=== PATIENT | female | born 1945 | race Caucasian/White ===

== ENCOUNTER → 2018-02-28 | Outpatient (REF) | payer MEDICARE, BC ==
[~2018-02-28] MED LIST: CELEBREX200 MG PO; FLORASTOR250 M1 PO; LISINOPRIL10 MG PO; METFORMIN1000 MG PO; NEXIUM40 MG PO; NYSTATIN100000 M1 PO; PRAVASTATIN20 MG PO; PROVENTIL HFA INH; SPIRIVA HANDIHALER INH; SYNTHROID75 MCG PO; TRILIPIX135 MG PO
[2018-02-28 08:30] LABS: ANION GAP 13 (6-22 (CALC)); BUN 20 mg/dL (8-23); BUN/CREATININE RATIO 22 (12-20 (CALC)); CARBON DIOXIDE 25 mmol/l (22-30); CHLORIDE 104 mmol/l (95-108); CREATININE 0.9 mg/dL (0.5-1.0); GFR > 60 ML/MIN (>=60 (CALC)); GFR FOR AFR.AMER. > 60 ML/MIN (>=60 (CALC)); POTASSIUM 4.6 mmol/l (3.5-5.1); SODIUM 138 mmol/l (137-146)
== END | disposition home or self-care (01) ==
LOC: LAB 07:04
PROVIDERS: ATTEND Internal Medicine
DX: E03.9 Hypothyroidism, unspecified (principal); E11.9 Type 2 diabetes mellitus without complications; E87.5 Hyperkalemia; E66.01 Morbid (severe) obesity due to excess calories; I10 Essential (primary) hypertension; N18.9 Chronic kidney disease, unspecified

== ENCOUNTER 2021-01-05 13:01 | Inpatient (IN) | payer MEDICARE, BC ==
[~2021-01-05] VITALS: Ht 167.6 cm; Wt 78.0 kg
--- NOTE | 2021-01-05 13:02 | NUR ---
PT TO ROOM FOR TRIAGE VIA EMS STRETCHER.
[2021-01-05 13:42] LABS: HEMATOCRIT 42.7 % (37.0-47.0); HEMOGLOBIN 14.1 g/dl (12.0-16.0); IMMATURE GRANULOCYTES 0.4 % (0.0-5.0); MEAN CELL VOLUME 85.4 fL CALC (80.0-100.0); MEAN CORPUSCULAR HGB 28.2 pG CALC (26.0-32.0); NEUT# 3.87 thou/uL (2.00-7.15); RED CELL DISTRI WIDTH 13.2 % (11.5-15.5)
[2021-01-05 14:20] LABS: ALBUMIN 3.4 g/dL (3.2-5.0); ALKALINE PHOSPHATASE 63 u/l (38-126); ANION GAP 12 (6-22 (CALC)); BILIRUBIN, TOTAL 0.3 mg/dL (0.0-1.4); BUN 17 mg/dL (8-23); BUN/CREATININE RATIO 19 (12-20 (CALC)); CARBON DIOXIDE 27 mmol/l (22-30); CHLORIDE 93 mmol/l (95-108); CREATININE 0.9 mg/dL (0.5-1.0); GFR > 60 ML/MIN (>=60 (CALC)); GFR FOR AFR.AMER. > 60 ML/MIN (>=60 (CALC)); LIPASE 590 u/l (23-300); POTASSIUM 4.4 mmol/l (3.5-5.1); SGOT/AST 24 u/l (9-36); SODIUM 128 mmol/l (137-146); TOTAL PROTEIN 6.8 g/dL (6.3-8.2)
[2021-01-05] MEDS ORDERED: OMEPRAZOLE10 MG PO (14:39)
[2021-01-05] MEDS ORDERED: NORVASC5 M1 PO (14:40)
[2021-01-05] MEDS ORDERED: HYDROCHLOROT12.5 MG PO (14:41)
--- NOTE | 2021-01-05 14:43 | NUR ---
IV FLUIDS AND MEDS INFUSING WITHOUT DIFFICULTY. DAUGHTER AT BEDSIDE. STABLE ON MONITOR. CALL LIGHT WITHIN REACH.
--- NOTE | 2021-01-05 15:45 | NUR ---
IV MEDS COMPLETED. FLUIDS INFUSING WITHOUT DIFFICULTY.
[2021-01-05] MEDS ORDERED: TOLTERODINE TART2 M1 PO (16:10)
[2021-01-05] MEDS ORDERED: OMEPRAZOLE DR20 MG PO (16:11)
[2021-01-05] MEDS ORDERED: MAGNESIUM400 MG PO (16:11)
[2021-01-05] MEDS ORDERED: LEVOTHYROXIN25 MC1 PO (16:12)
[2021-01-05] MEDS ORDERED: NORVASC2.5 M1 PO (16:12)
[2021-01-05] MEDS ORDERED: PROAIR HFA108 MCG/AC IN (16:13)
--- NOTE | 2021-01-05 16:29 | NUR ---
STABLE ON MONITOR. DAUGHTER REMAINS AT BEDSIDE. NO COMPLAINTS VOICED.
[2021-01-05 17:10] LABS: C-REACTIVE PROTEIN 6.9 mg/dL (0-0.9)
--- NOTE | 2021-01-05 17:12 | NUR ---
REPORT CALLED TO PAULY IN MED SURG
--- NOTE | 2021-01-05 17:12 | NUR ---
REPORT RECEIVED FROM MITCHRN
[2021-01-05 17:25] VITALS: BP 118/58
--- NOTE | 2021-01-05 17:25 | NUR ---
PT ARRIVED TO MED/SURG ROOM 281 IN STABLE CONDITION VIA STRETCHER ACCOMPANIED BY NOAH GREEN;PT ASSISTED TO BEDSIDE WITH A STEADY GAIT;WT AND VS OBTAINED BY OMID KIRBY;PT A&O X3, ORIENTED TO ROOM AND CALL LIGHT SYSTEM;PT REPORTS FEELING WEAK FOR 8 DAYS DIRECTOR INDUSTRIAL RELATIONS;ASSESSMENT COMPLETED;RESPIRATIONS EVEN AND UNLABORED ON O2 @ 2L VIA NC, PT IS NOT HOME DEPENDENT;CLEAR/DIMINISHED LUNG SOUNDS NOTED;ABDOMEN SOFT ON PALPATION AND ACTIVE IN ALL 4 QUADRANTS, PT UNABLE TO RECALL LAST BM;WEAK PEDAL PULSES;SKIN INTACT;TELE MONITORING IN PLACE;#20G TO RAC INFUSING NS @ 100ML/HR,SITE APPEARS HEALTHY;FALL AND ALLERGY BAND APPLIED TO RIGHT ARM;ACCUCHECK 109, NO COVERAGE NEEDED;PT REMAINS IN AIR/CONTACT PRECAUTIONS DUE TO COVID19 DX;PT DENIES ANY ADDITIONAL NEEDS AND IS ENCOURAGED TO CALL FOR ASSISTANCE IF NEEDED;FALL PRECAUTIONS IN PLACE WITH BED IN THE LOWEST POSITION AND CALL LIGHT IN REACH;WILL CONTINUE TO MONITOR
--- NOTE | 2021-01-05 18:23 | NUR ---
PT RESTING IN SEMI FOWLERS POSITION;RESPIRATIONS EVEN AND UNLABORED ON O2 @ 2L VIA NC;PT DENIES ANY NEEDS;TELE MONITORING IN PLACE;CALL LIGHT IN REACH;WILL CONTINUE TO MONITOR
[2021-01-05 19:00] VITALS: BP 122/52
--- NOTE | 2021-01-05 21:49 | NUR ---
PT MEDICATED ORDERS PROVIDE AND ASSESSMENT COMPLETED AT THIS TIME. PT DENIES SOB, HAS MILD DRY COUGH WHILE I AM IN THE ROOM. DENIES N/V/D, BUT REPORTS THAT SHE HAS JUST BEEN FEELING WEAK AND NO APPETITE. "I HAVEN'T BEEN EATING OR DRINKING." NO S/O DISTRESSES. PT DENIES ANY OTHER NEEDS AT THIS TIME.
--- NOTE | 2021-01-05 22:10 | NUR ---
ATTEMPTS TO CALL RESP FOR ASSISTANCE SETTING UP PT'S HOME CPAP.
[2021-01-06 00:11] VITALS: BP 126/71
--- NOTE | 2021-01-06 00:20 | NUR ---
RESP IN WITH PT SETTING UP CPAP FOR PT FROM HOME.
--- NOTE | 2021-01-06 04:28 | NUR ---
PT MEDICATED ORDERS PROVIDE AND IVF REPLENISHED AT THIS TIME. NO S/O DISTRESS NOTED. PT IS WEARING CPAP FROM HOME SET UP BY RESP THERAPIST EARLIER THIS SHIFT. SHE C/O IVPUMP SOUNDING, DENIED ANY OTHER NEEDS AT THIS TIME. SYSTEMS TEST ENGINEER COMING IN WITH PT FOR V/S AND ASSIST TO RESTROOM AT THIS TIME.
[2021-01-06 04:30] VITALS: BP 123/62
[2021-01-06 05:05] LABS: URINE BILIRUBIN - DIPSTICK NEGATIVE (NEGATIVE); URINE BLOOD DIPSTICK NEGATIVE (NEGATIVE); URINE COLOR YELLOW; URINE GLUCOSE - DIPSTICK NEGATIVE (NEGATIVE); URINE KETONE NEGATIVE (NEGATIVE); URINE LEUK ESTERASE TRACE (NEGATIVE); URINE PROTEIN - DIPSTICK NEGATIVE (NEG-TRACE); URINE SPECIFIC GRAVITY 1.015; URINE UROBILINOGEN - DIPSTICK 0.2 E.U./dL (0.2)
[2021-01-06 05:06] LABS: URINE NITRITE - DIPSTICK NEGATIVE (Negative)
[2021-01-06 05:12] LABS: HEMATOCRIT 42.6 % (37.0-47.0); HEMOGLOBIN 13.8 g/dl (12.0-16.0); IMMATURE GRANULOCYTES 0.3 % (0.0-5.0); MEAN CELL VOLUME 87.5 fL CALC (80.0-100.0); MEAN CORPUSCULAR HGB 28.3 pG CALC (26.0-32.0); MEAN CORPUSCULAR HGB CONC 32.4 g/dL CAL (32.0-36.0); NEUT# 2.13 thou/uL (2.00-7.15); RED BLOOD COUNT 4.87 mill/uL (4.20-5.60); RED CELL DISTRI WIDTH 13.5 % (11.5-15.5)
[2021-01-06 05:37] LABS: ALBUMIN 2.9 g/dL (3.2-5.0); ALKALINE PHOSPHATASE 42 u/l (38-126); BUN 16 mg/dL (8-23); BUN/CREATININE RATIO 24 (12-20 (CALC)); C-REACTIVE PROTEIN 7.6 mg/dL (0-0.9); CARBON DIOXIDE 24 mmol/l (22-30); CHLORIDE 101 mmol/l (95-108); CREATININE 0.7 mg/dL (0.5-1.0); GFR > 60 ML/MIN (>=60 (CALC)); GFR FOR AFR.AMER. > 60 ML/MIN (>=60 (CALC)); SGOT/AST 33 u/l (9-36); SODIUM 131 mmol/l (137-146); TOTAL PROTEIN 6.2 g/dL (6.3-8.2)
[2021-01-06 05:59] LABS: ANION GAP 11 (6-22 (CALC)); BILIRUBIN, TOTAL 0.6 mg/dL (0.0-1.4); POTASSIUM 5.3 mmol/l (3.5-5.1)
[2021-01-06 07:30] VITALS: BP 123/82
--- NOTE | 2021-01-06 07:30 | NUR ---
PATIENT LAYING IN BED AT THIS TIME MERCHANDISE FLOW MANAGER DONE SEE INTERVENTONS. PATIENT ON 2LITERS AT THIS TIME. DENEIS ANY PAIN DOES EXHIBIT DRY COUGH. TELE MONITOR IN PLACE AT THIS TIME AND BEING MONITORED BY ED. SIDERAILS ARE UP CALL LIGHT WITHIN REACH. LUNG NGUYỄN ARE CLEAR/DIMINISHED IN LOWER NGUYỄN.
--- NOTE | 2021-01-06 10:31 | NUR ---
PATIENT TAKEN DOWN TO CT FOR A CTA.
--- NOTE | 2021-01-06 10:59 | NUR ---
PATIENT RETURNED BACK TO FLOOR FROM CT AT THIS TIME. PATIENT SHORT OF BREATH AT THIS TIME AND PLACED BACK ON 02 2 LITERS AT THIS TIME. PATIENT DENEIS ANY PAIN AND IV FLUIDS WERE RESTARTED AT THIS TIME.
--- NOTE | 2021-01-06 11:21 | NUR ---
PATIENT RESTING IN BED AT THIS TIME. SIDERAILS ARE UP X 2 CALL LIGHT WITHIN REACH. PATIENT ENCOURAGED TO DRINK FLUIDS AT THIS TIME. 02 REMAINS ON AT 2 LITERS. TELE MONITOR ON AND BEING MONITORED BY ED
[2021-01-06 11:35] VITALS: BP 130/54
--- NOTE | 2021-01-06 11:46 | NUR ---
INSENTIVE SPIROMETER EDUCATION GIVEN TO PATIENT. PATIENT VERBALIZED UNDERSTANDING OF EDUCATION GIVEN AND RE-DEMONSTRATED USE AND UNDERSTANDING
--- NOTE | 2021-01-06 14:30 | NUR ---
PHYSICAL THERAPY IN TO SEE PATIENT AT THIS TIME.
[2021-01-06 16:00] VITALS: BP 120/56
--- NOTE | 2021-01-06 16:00 | NUR ---
PATIENT LAYING IN BED DENIES ANY NEEDS O2 REMAINS ON SIDERAILS ARE UP CALL LIGHT WITHIN REACH.
[2021-01-06 19:00] VITALS: BP 119/75
--- NOTE | 2021-01-06 21:10 | NUR ---
PATIENT ALERT AND ORIENTED. ABLE TO MAKE NEEDS KNOWN. ASSESSMENT DONE AT THIS TIME. PATIENT COMPLAINED OF BEING HOT IN THE ROOM. PATIENT FELT ALOT MORE COMFORTABLE. NO OTHER NEEDS VOICED. PATIENT ALSO RECEIVED SCHEDULED MEDICATIONS PLUS A PRN SONATA FOR SLEEP PER PATIENT REQUEST. IV SITE TO RIGHT AC PATENT. BED IN LOWEST POSITION. CALL LIGHT AND BELONGINGS WITHIN REACH.
--- NOTE | 2021-01-06 23:20 | NUR ---
PATIENT CALLED FOR ASSISTANCE TO BED SIDE COMMODE. PATIENT AMBULATED WELL.
[2021-01-07 00:30] VITALS: BP 130/68
[2021-01-07 03:55] VITALS: BP 133/69
--- NOTE | 2021-01-07 05:05 | NUR ---
ADMINISTERED PRESCRIBED MEDICATION TO PATIENT. NO COMPLAINTS VOICED AT THIS TIME. CALL LIGHT WITHIN REACH.
[2021-01-07 07:00] VITALS: BP 128/69
--- NOTE | 2021-01-07 07:00 | NUR ---
PATIENT LAYING IN BED AT THIS TIME. BRAKE DRUM MOLDER DONE AT THIS TIME SEE INTERVENTIONS. LUNG NGUYỄN REMAIN DIMINISHED O2 ON AT 2 LITERS AND SPO2 AT THIS TIME IS 95%. PATIENT ARSALAN ANY PAIN BUT DOES STATE "I DID NOT SLEEP WELL LAST NIGHT". SIDERAILS ARE UP TELE MONITOR IN PLACE AND BEING MONITORED BY ED. CONNIE TYSON HAS NOTED DRY COUGH AT THIS TIME.
[2021-01-07 07:01] LABS: ALBUMIN 2.7 g/dL (3.2-5.0); ALKALINE PHOSPHATASE 54 u/l (38-126); ANION GAP 12 (6-22 (CALC)); BUN 18 mg/dL (8-23); BUN/CREATININE RATIO 24 (12-20 (CALC)); CARBON DIOXIDE 23 mmol/l (22-30); CHLORIDE 104 mmol/l (95-108); CREATININE 0.8 mg/dL (0.5-1.0); GFR > 60 ML/MIN (>=60 (CALC)); GFR FOR AFR.AMER. > 60 ML/MIN (>=60 (CALC)); POTASSIUM 4.6 mmol/l (3.5-5.1); SGOT/AST 20 u/l (9-36); SODIUM 134 mmol/l (137-146); TOTAL PROTEIN 5.4 g/dL (6.3-8.2)
[2021-01-07 07:07] LABS: BILIRUBIN, TOTAL 0.1 mg/dL (0.0-1.4)
[2021-01-07 07:10] LABS: HEMATOCRIT 41.1 % (37.0-47.0); HEMOGLOBIN 13.4 g/dl (12.0-16.0); IMMATURE GRANULOCYTES 0.5 % (0.0-5.0); MEAN CELL VOLUME 87.1 fL CALC (80.0-100.0); MEAN CORPUSCULAR HGB 28.4 pG CALC (26.0-32.0); MEAN CORPUSCULAR HGB CONC 32.6 g/dL CAL (32.0-36.0); NEUT# 4.17 thou/uL (2.00-7.15); RED BLOOD COUNT 4.72 mill/uL (4.20-5.60); RED CELL DISTRI WIDTH 13.7 % (11.5-15.5)
--- NOTE | 2021-01-07 11:58 | NUR ---
SIX MIN. WALK TEST DONE AT THIS TIME. PATIENT HAS BEEN OFF 0XYGEN SINCE BEFORE SHIFT AND SITTING SPO2 IS NOW 94%. AFTER WALKING PATIENT FOR 5 MIN. SPO2 IS NOW 91%. RETURNED PATIENT TO SITTING POSITION AND RESTING SPO2 IS UP TO 94%. REPORT WAS SHARED [facility] DR. AMAYA AND JEREMY MICHAUD.
[2021-01-07 12:06] VITALS: BP 122/54
--- NOTE | 2021-01-07 12:13 | NUR ---
PATIENT SITTING AT BEDSIDE EATING LUNCH AT THIS TIME. CALL LIGHT WITHIN REACH SIDERAILS UP X 2.
[2021-01-07 16:05] VITALS: BP 129/63
--- NOTE | 2021-01-07 16:31 | NUR ---
PATIENT SITTING AT SIDE OF BED AT THIS TIME PHYSICAL THERAPY IN TO SEE PATIENT PATIENT DENIES ANY NEEDS O2 REMAINS ON AT 2L TELE MONITOR ON AND BEING MONITORED BY ED.
[2021-01-07 19:15] VITALS: BP 113/55
--- NOTE | 2021-01-07 20:30 | NUR ---
PATIENT IS ALERT AND ORIENTED. ABLE TO MAKE NEEDS KNOWN. RESPIRATIONS EVEN. ON TELEMETRY. REGULAR RHYTHM. DENIES PAIN AT THIS TIME. VAD INFUSING IVF ORDERED. FALL PRECAUTIONS IN PLACE. ASSESSMENT COMPLETED AND CHARTED. BED IN LOW POSITION. CALL LIGHT WITHIN REACH.
[2021-01-08] VITALS (7 sets, daily range): BP systolic 124–150; BP diastolic 55–80
--- NOTE | 2021-01-08 | NUR ---
PATIENT SLEEPING COMFORTABLY, NO APPARENT DISTRESS. CALL LIGHT AND BEDSIDE TABLE WITHIN REACH.
[2021-01-08 06:10] LABS: HEMATOCRIT 39.9 % (37.0-47.0); HEMOGLOBIN 13.3 g/dl (12.0-16.0); IMMATURE GRANULOCYTES 0.5 % (0.0-5.0); MEAN CELL VOLUME 85.3 fL CALC (80.0-100.0); MEAN CORPUSCULAR HGB 28.4 pG CALC (26.0-32.0); MEAN CORPUSCULAR HGB CONC 33.3 g/dL CAL (32.0-36.0); NEUT# 4.09 thou/uL (2.00-7.15); RED BLOOD COUNT 4.68 mill/uL (4.20-5.60); RED CELL DISTRI WIDTH 13.6 % (11.5-15.5)
[2021-01-08 06:23] LABS: ALBUMIN 2.7 g/dL (3.2-5.0); ALKALINE PHOSPHATASE 57 u/l (38-126); ANION GAP 10 (6-22 (CALC)); BUN 16 mg/dL (8-23); BUN/CREATININE RATIO 21 (12-20 (CALC)); CARBON DIOXIDE 25 mmol/l (22-30); CHLORIDE 103 mmol/l (95-108); CREATININE 0.8 mg/dL (0.5-1.0); GFR > 60 ML/MIN (>=60 (CALC)); GFR FOR AFR.AMER. > 60 ML/MIN (>=60 (CALC)); MAGNESIUM 1.3 mg/dL (1.6-2.3); POTASSIUM 4.2 mmol/l (3.5-5.1); SGOT/AST 17 u/l (9-36); SODIUM 133 mmol/l (137-146); TOTAL PROTEIN 5.4 g/dL (6.3-8.2)
--- NOTE | 2021-01-08 06:55 | NUR ---
REPORT RECEIVED FROM NOAH TORRES
--- NOTE | 2021-01-08 08:17 | NUR ---
PT RESTING IN SEMI FOWLERS POSITION,A&O X3;VS OBTAINED AND ASSESSMENT COMPLETED;PT DENIES ANY CURRENT PAIN OR DISCOMFORTS, PAIN SCALE AND REPORTING EDUCATED;RESPIRATIONS SHALLOW ON O2 @ 2L VIA NC, PT IS NOT OXYGEN DEPENDENT;CLEAR/DIMINISHED LUNG SOUNDS NOTED WITH NON-PRODUCTIVE COUGH AT TIMES;ABDOMEN SOFT ON PALPATION AND ACTIVE IN ALL 4 QUADRANTS;STRONG PEDAL PULSES;SKIN INTACT;TELE MONITORING IN PLACE;#20G TO RAC INFUSING NS @ 50ML/HR,SITE APPEARS HEALTHY;ACCUCHECK 104, NO COVERAGE NEEDED;PT REMAINS IN AIR/CONTACT PRECAUTIONS DUE TO COVID19 DX;PT DENIES ANY ADDITIONAL NEEDS AND IS ENCOURAGED TO CALL FOR ASSISTANCE IF NEEDED;FALL PRECAUTIONS IN PLACE WITH BED IN THE LOWEST POSITION AND CALL LIGHT IN REACH;WILL CONTINUE TO MONITOR
--- NOTE | 2021-01-08 08:28 | NUR ---
01/07/21 Patient is seen for DBE including 4 second breath holds to be every hour she is awake. She also ambulated without AD but with min assist of 1 in room x 50 feet x 2 with vitals stable and o2 in place. Her Am Pac is 13 indicating she would do well with Home Health intervention
--- NOTE | 2021-01-08 10:58 | NUR ---
AT BEDSIDE DISCUSSING POC WITH PT.
--- NOTE | 2021-01-08 12:05 | NUR ---
PT RESTING IN RECLINER;RESPIRATIONS REMAIN SHALLOW ON O2 @ 2L VIA NC;PT MEDICATED WITH VENTOLIN INHALER BY REQUEST;PT DENIES ANY CURRENT PAIN OR DISCOMFORTS;TELE MONITORING IN PLACE;IV SITE PATENT INFUSING MAG WITH EASE PER ORDER;PT DENIES ANY ADDITIONAL NEEDS AND IS ENCOURAGED TO CALL FOR ASSISTANCE IF NEEDED;FALL PRECAUTIONS REMAIN IN PLACE WITH CALL LIGHT IN REACH;WILL CONTINUE TO MONITOR
[2021-01-08] MEDS ORDERED: IVERMECTIN3 MG PO (12:31)
--- NOTE | 2021-01-08 14:41 | NUR ---
PRASANTH,PHYSICAL THERAPY AT BEDSIDE WORKING WITH PT.
--- NOTE | 2021-01-08 15:35 | NUR ---
PT APPEARS TO BE SLEEPING IN RECLINER;RESPIRATIONS SHALLOW ON O2 @ 2L VIA NC;NO S/S OF DISTRESS NOTED;TELE MONITORING IN PLACE;IV SITE PATENT INFUSING ABX AND NS WITH EASE;ALL SAFETY PRECAUTIONS IN PLACE WITH CALL LIGHT IN REACH;WILL CONTINUE TO MONITOR
--- NOTE | 2021-01-08 21:05 | NUR ---
PT IN SEMI LYLE POSITION; A/O X3; DENIES PAIN; C/O DISCOMFORT TO BUTTOCKS, PT REPOSTIONED TO LEFT SIDE WITH PILLOW IN PLACE; O2 2L VIA N/C, LUNGS CLEAR/DIMINSHED, PT DENIES COUGH; TELE MONITOR IN PLACE; ENCOURAGE USE OF CALL LIGHT IF ANY ASSISTANCE IS NEEDED; WILL CONTINUE TO MONITOR.
--- NOTE | 2021-01-08 21:50 | NUR ---
REPORT RECEIVED FROM Piotr NGUYỄN, PATIENT CARE ASSUMED AT THIS TIME.
--- NOTE | 2021-01-09 03:41 | NUR ---
PATIENT SLEEPING COMOFRTABLY, NO APPARENT DISTRESS NOTED AT THIS TIME. CALL LIGHT AND BEDSIDE TABLE WITHIN REACH.
[2021-01-09 04:06] VITALS: BP 132/53
[2021-01-09 09:37] VITALS: BP 134/84
--- NOTE | 2021-01-09 09:37 | NUR ---
PATIENT IS SITTING IN RECLINER. ASSESSMENT DONE. PATIENT IS ALERT AND ORIENT X3.PATIENT DENIES PAIN. TELE IN PLACE. PATIENT HAS A DRY COUGH. O2 AT 2L VIA NC AND READING 95%. PATIENT DENIES ANY NEEDS AT THIS TIME. CALL LIGHT IN REACH.
[2021-01-09 10:54] VITALS: BP 125/66
--- NOTE | 2021-01-09 12:00 | NUR ---
PATIENT IS SITTING IN THE RECLINER WITH NO DISTRES NOTED. TELE IN PLACE. PATIENT DENIES NEEDS AT THIS TIME. CALL LIGHT IN REACH.
[2021-01-09] MEDS ORDERED: DEXAMETHASON6 MG PO (12:51)
[2021-01-09 15:19] VITALS: BP 123/49
--- NOTE | 2021-01-09 17:00 | NUR ---
Discharge instructions given. Patient verbalizes understanding of same. Discharged in stable condition via Wheelchair to Home with staff. All belongings sent with pt. KATIE VELAZQUEZ FOR HER 02. SHOW PATIENT HOW TO USE THE 02 TANK. PATIENT VERBALIZED UNDERSTANDING.
--- NOTE | 2021-01-11 11:34 | NUR ---
Pneumonia post discharge follow up call completed today, 01/11/21. Pt. states she is doing well. Pt. has daughter with her and seems well cared for. Pt. states she had minimal SOB the first night home, but none since then. No fever or chills. Pt. is taking prescribed medication without issue. [facility]/ No questions or concerns voiced at this time. Appreciative of follow up call.
== END 2021-01-09 17:30 | disposition home or self-care (01) | DRG 177 ==
LOC: ED 13:01 → ED-I 14:49 → ED 15:07 → MS2 15:08
PROVIDERS: Nurse Practitioner; ADMIT Internal Medicine; ATTEND Internal Medicine
PROC: XW033E5 Introduction of Remdesivir Anti-infective into Peripheral Vein, Percutaneous Approach, New Technology Group 5 (ICD-10-PCS; principal; 2021-01-05)
PROC: XW0DXF5 Introduction of Other New Technology Therapeutic Substance into Mouth and Pharynx, External Approach, New Technology Group 5 (ICD-10-PCS; 2021-01-08)
DX: U07.1 COVID-19 (principal); J12.82 Pneumonia due to coronavirus disease 2019; E87.1 Hypo-osmolality and hyponatremia; R09.02 Hypoxemia; E11.22 Type 2 diabetes mellitus with diabetic chronic kidney disease; I12.9 Hypertensive chronic kidney disease with stage 1 through stage 4 chronic kidney disease, or unspecified chronic kidney disease; N18.9 Chronic kidney disease, unspecified; J44.9 Chronic obstructive pulmonary disease, unspecified; E03.9 Hypothyroidism, unspecified; K21.9 Gastro-esophageal reflux disease without esophagitis; E78.5 Hyperlipidemia, unspecified
CPT/HCPCS: J1650; J3475; Q9967

== ENCOUNTER 2021-12-08 09:35 | Emergency (ER) | payer MEDICARE, BC ==
[~2021-12-08] VITALS: Ht 167.6 cm; Wt 81.8 kg
[~2021-12-08 09:35] MED LIST changes: +DEXAMETHASON6 MG PO; +HYDROCHLOROT12.5 MG PO; +IVERMECTIN3 MG PO; +LEVOTHYROXIN25 MC1 PO; +MAGNESIUM400 MG PO; +NORVASC2.5 M1 PO; +NORVASC5 M1 PO; +OMEPRAZOLE DR20 MG PO; +OMEPRAZOLE10 MG PO; +PROAIR HFA108 MCG/AC IN; +TOLTERODINE TART2 M1 PO
[2021-12-08 09:42] VITALS: BP 149/81
[2021-12-08 10:00] VITALS: BP 140/75
[2021-12-08 10:31] VITALS: BP 126/64
[2021-12-08 11:00] VITALS: BP 137/72
[2021-12-08] MEDS ORDERED: CYCLOBENZAPRINE10 MG PO (11:22)
[2021-12-08] MEDS ORDERED: NAPROXEN500 MG PO (11:22)
[2021-12-08 11:30] VITALS: BP 123/66
== END 2021-12-08 11:40 | disposition home or self-care (01) ==
LOC: ED 09:35
DX: M19.032 Primary osteoarthritis, left wrist (principal); I10 Essential (primary) hypertension; J44.9 Chronic obstructive pulmonary disease, unspecified; Z96.611 Presence of right artificial shoulder joint

== ENCOUNTER 2022-02-11 10:45 | Emergency (ER) | payer MEDICARE, BC ==
[~2022-02-11] VITALS: Ht 167.6 cm; Wt 84.1 kg
[2022-02-11] VITALS (9 sets, daily range): BP systolic 128–148; BP diastolic 62–74
[~2022-02-11 10:45] MED LIST changes: +CYCLOBENZAPRINE10 MG PO; +NAPROXEN500 MG PO
[2022-02-11 12:50] LABS: HEMATOCRIT 41.5 % (37.0-47.0); HEMOGLOBIN 13.8 g/dl (12.0-16.0); IMMATURE GRANULOCYTES 0.1 % (0.0-5.0); MEAN CELL VOLUME 85.2 fL CALC (80.0-100.0); MEAN CORPUSCULAR HGB 28.3 pG CALC (26.0-32.0); MEAN CORPUSCULAR HGB CONC 33.3 g/dL CAL (32.0-36.0); NEUT# 6.81 thou/uL (2.00-7.15); RED BLOOD COUNT 4.87 mill/uL (4.20-5.60); RED CELL DISTRI WIDTH 14.8 % (11.5-15.5)
[2022-02-11 12:59] LABS: CREATININE 1.3 mg/dL (0.5-1.0); TOTAL PROTEIN 6.6 g/dL (6.3-8.2)
[2022-02-11 13:05] LABS: BILIRUBIN, TOTAL 0.5 mg/dL (0.0-1.4); POTASSIUM 5.4 mmol/l (3.5-5.1)
[2022-02-11 13:54] LABS: C-REACTIVE PROTEIN 1.4 mg/dL (0-0.9)
[2022-02-11] MEDS ORDERED: VIBRAMYCIN100 M2 PO (14:04)
== END 2022-02-11 14:45 | disposition home or self-care (01) ==
LOC: ED 10:45
PROVIDERS: Nurse Practitioner
DX: L03.116 Cellulitis of left lower limb (principal); I10 Essential (primary) hypertension; J44.9 Chronic obstructive pulmonary disease, unspecified

== ENCOUNTER 2022-05-11 06:12 | Emergency (ER) | payer MEDICARE, BC ==
[2022-05-11] VITALS (7 sets, daily range): BP systolic 108–155; BP diastolic 53–86
[~2022-05-11] VITALS: Ht 167.6 cm; Wt 81.0 kg
[~2022-05-11 06:12] MED LIST changes: -HYDROCHLOROT12.5 MG PO; +HYDROCHLOROT25 MG PO; +VIBRAMYCIN100 M2 PO
[2022-05-11] MEDS ORDERED: PROAIR HFA IN (06:43)
[2022-05-11] MEDS ORDERED: SPIRIVA RE2.5 MCG/AC INHW/SPAC (06:43)
[2022-05-11] MEDS ORDERED: ALLOPURINOL300 MG PO (06:44)
[2022-05-11] MEDS ORDERED: ZINC50 MG PO (06:45)
[2022-05-11 08:24] LABS: HEMATOCRIT 40.5 % (37.0-47.0); HEMOGLOBIN 13.3 g/dl (12.0-16.0); IMMATURE GRANULOCYTES 0.2 % (0.0-5.0); MEAN CELL VOLUME 88.2 fL CALC (80.0-100.0); MEAN CORPUSCULAR HGB CONC 32.8 g/dL CAL (32.0-36.0); NEUT# 7.69 thou/uL (2.00-7.15); RED BLOOD COUNT 4.59 mill/uL (4.20-5.60); RED CELL DISTRI WIDTH 14.6 % (11.5-15.5)
[2022-05-11 08:34] LABS: ANION GAP 12 (6-22 (CALC)); BUN 23 mg/dL (8-23); BUN/CREATININE RATIO 18 (12-20 (CALC)); CARBON DIOXIDE 26 mmol/l (22-30); CHLORIDE 102 mmol/l (95-108); CREATININE 1.3 mg/dL (0.5-1.0); GFR FOR AFR.AMER. 48 ML/MIN (>=60 (CALC)); GFR OTHER RACES 40 ML/MIN (>=60 (CALC)); POTASSIUM 4.7 mmol/l (3.5-5.1); SODIUM 136 mmol/l (137-146)
[2022-05-11] MEDS ORDERED: CELEBREX100 M1 PO (12:18)
[2022-05-11] MEDS ORDERED: NEURONTIN300 MG PO (12:18)
[2022-05-11] MEDS ORDERED: ACYCLOVIR400 MG PO (12:18)
[2022-05-11] MEDS ORDERED: FLEXERIL5 M1 PO (12:18)
== END 2022-05-11 14:42 | disposition home or self-care (01) ==
LOC: ED 06:12
PROVIDERS: Emergency Medicine
DX: R07.89 Other chest pain (principal); E83.42 Hypomagnesemia; I10 Essential (primary) hypertension; J44.9 Chronic obstructive pulmonary disease, unspecified
CPT/HCPCS: Q9967

== ENCOUNTER 2024-05-02 17:44 | Emergency (ER) | payer MEDICARE, BC ==
[~2024-05-02] VITALS: Ht 167.6 cm; Wt 82.0 kg
[~2024-05-02 17:44] MED LIST changes: +ACYCLOVIR400 MG PO; +ALLOPURINOL300 MG PO; +CELEBREX100 M1 PO; +FLEXERIL5 M1 PO; +NEURONTIN300 MG PO; +PROAIR HFA IN; +SPIRIVA RE2.5 MCG/AC INHW/SPAC; +ZINC50 MG PO
[2024-05-02 17:54] VITALS: BP 158/89
[2024-05-02 18:00] VITALS: BP 143/81
[2024-05-02] MEDS ORDERED: Diph, Acellular Pertussis, Tet 0.5 ML/VIAL (Tdap) SDV IM ONE (18:15)
[2024-05-02] MEDS ORDERED: HYDROcodone 5 MG/Acetaminophen 325 MG/COMBO PO ONE (18:15)
[2024-05-02] MEDS ORDERED: SILVER SULFADIAZINE 400 GM JAR TOP ONE (18:15)
[2024-05-02 18:30] VITALS: BP 136/81
[2024-05-02] MEDS ORDERED: LORTAB 5/3255 MG PO ×2 (18:43→19:32)
[2024-05-02 19:01] VITALS: BP 136/81
== END 2024-05-02 19:08 | disposition home or self-care (01) ==
LOC: ED 17:44
PROC: 2W21X4Z Dressing of Face using Bandage (ICD-10-PCS; principal; 2024-05-02)
PROC: 2W22X4Z Dressing of Neck using Bandage (ICD-10-PCS; 2024-05-02)
PROC: 2W2CX4Z Dressing of Right Lower Arm using Bandage (ICD-10-PCS; 2024-05-02)
PROC: 2W2DX4Z Dressing of Left Lower Arm using Bandage (ICD-10-PCS; 2024-05-02)
PROC: 2W2EX4Z Dressing of Right Hand using Bandage (ICD-10-PCS; 2024-05-02)
PROC: 2W2FX4Z Dressing of Left Hand using Bandage (ICD-10-PCS; 2024-05-02)
DX: T23.262A Burn of second degree of back of left hand, initial encounter (principal); T23.261A Burn of second degree of back of right hand, initial encounter; T22.112A Burn of first degree of left forearm, initial encounter; T22.111A Burn of first degree of right forearm, initial encounter; T20.14XA Burn of first degree of nose (septum), initial encounter; T20.16XA Burn of first degree of forehead and cheek, initial encounter; T31.0 Burns involving less than 10% of body surface; J44.9 Chronic obstructive pulmonary disease, unspecified; I10 Essential (primary) hypertension; X02.0XXA Exposure to flames in controlled fire in building or structure, initial encounter